=== PATIENT | female | born 1980 | race Hispanic/Latino ===

== ENCOUNTER 2016-11-29 11:29 | Outpatient (CLI) | payer BC ==
--- NOTE | 2016-11-29 12:56 | Mammography Report ---
BONE DEXA:11/29/16 11:29:00 CLINICAL: History of breast cancer on aromatase inhibitor. COMPARISON: 04/18/15 and 06/05/13 TECHNIQUE: Two site bone DEXA performed on an [email or web address] scanner. FINDINGS: The average BMD of the lumbar spine L1-L4 is 0.736g/cm squared with a T-score of -2.8 and a Z-score of -2.7. This compares to 0.742g/cm squared on the last exam and represents a -0.8% change from the previous study and a +3.6% change from baseline.. The average BMD of the left hip is 0.898g/cm squared with a T-score of -0.5 and a Z-score of -0.5. This compares to 0.916g/cm squared on the last exam and represents a -1.9% change from the previous study but a +14.8% change from baseline. IMPRESSION: 1. WHO classification: Osteoporosis with high fracture risk based on spine measurements. A slight decline in spine BMD compared to the prior exam. 2. WHO classification: Normal with average fracture risk based on left hip measurements. A slight decline in left hip BMD compared to the prior exam. RECOMMENDATION: Clinical correlation and routine screening. DEFINITIONS: BMD = Bone Mineral Density T-score = BMD related to mean peak bone mass of young adult (mean expressed in Standard Deviation) Z-score = Age matched BMD expressed in SD World Health Organization (WHO) Diagnostic Criteria Normal T-score > -1 SD Osteopenia T-score between -1 and -2.4 SD Osteoporosis T-score -2.5 SD or below NOTE: BMD is not the only risk factor for fracture; also consider factors such as the patient's age, risk of falling, previous osteoporotic fracture, family history of osteoporotic fractures, current smoker, and low body weight. Z-scores are not calculated if >80 years of age.
== END 2016-11-29 11:30 | disposition home or self-care (01) ==
LOC: SPVWC 11:29
PROVIDERS: ATTEND Internal Medicine Hematology & Oncology
DX: M81.0 Age-related osteoporosis without current pathological fracture (principal); Z85.3 Personal history of malignant neoplasm of breast; Z79.811 Long term (current) use of aromatase inhibitors
CPT/HCPCS: 77080

== ENCOUNTER 2020-05-26 08:48 | Outpatient (CLI) | payer OTHER ==
--- NOTE | 2020-05-26 10:26 | Mammography Report ---
DEXA BONE DENSITY SCAN INDICATION / CLINICAL INFORMATION: MENOPAUSAL/POSTMENOPAUSAL. 39 years Female COMPARISON: 11/29/2016 and 04/18/2015 LUMBAR SPINE, L1, L3, L4: - Bone mineral density (BMD) = 0.706 g/cm2. - T-score = -3.2 - Z-score = -2.9 Change (%) since most recent prior (if available): 0.6% decrease since 2015 LEFT HIP, : - Bone mineral density (BMD) = 0.746 g/cm2. - T-score = -1.1 - Z-score = -1.0 Change (%) since most recent prior (if available): 10% decrease since 2016 IMPRESSION: 1. WHO Classification: Osteoporosis. Fracture Risk: High. Note: 10-Year Fracture Risk (FRAX) not reported. This DEXA unit lacks FRAX functionality. BMD Reporting Guidelines (ISCD, 2015) BMD Reporting in Postmenopausal Women and in Men Age 50 and Older - T-scores are preferred. - The WHO densitometric classification is applicable. BMD Reporting in Females Prior to Menopause and in Males Younger Than Age 50 - Z-scores, not T-scores, are preferred. This is particularly important in children. - A Z-score of -2.0 or lower is defined as below the expected range for age, and a Z-score above -2.0 is within the expected range for age. - Osteoporosis cannot be diagnosed in men under age 50 on the basis of BMD alone. - The WHO diagnostic criteria may be applied to women in the menopausal transition. http://www.iscd.org/official-positions/2007-hbih-djmzpufh-positions-adult/ Signer Name: Apolinar Solis MD Signed: 05/26/2020 10:22 AM Workstation Name: [id number]
== END 2020-05-26 08:49 | disposition home or self-care (01) ==
LOC: SPVWC 08:48
PROVIDERS: ATTEND Internal Medicine Hematology & Oncology
DX: C50.912 Malignant neoplasm of unspecified site of left female breast (principal); M81.0 Age-related osteoporosis without current pathological fracture; Z79.811 Long term (current) use of aromatase inhibitors
CPT/HCPCS: 77080